=== PATIENT | male | born 1960 | race Caucasian/White ===

== ENCOUNTER 2022-01-01 17:04 | Emergency (ER) | payer OTHER ==
[~2022-01-01] VITALS: Ht 172.7 cm; Wt 66.7 kg
[2022-01-01] MEDS ORDERED: NACL 0.9% 1,000 ML IV ONE (17:10)
[2022-01-01 17:23] VITALS: BP 177/85
[2022-01-01 17:36] LABS: HEMOGLOBIN 11.9 g/dL (12.0-18.0); MEAN CORPUSCULAR HEMOGLOBIN 32 pg (27-31); RED BLOOD CELL COUNT(AUTO) 3.69 MIL/uL (4.20-6.10)
--- NOTE | 2022-01-01 17:58 | NUR ---
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
--- NOTE | 2022-01-01 18:00 | NUR ---
61/M BIBA FROM HOME. PER EMS PATIENTS FAMILY CALLED 911 STATING THEY FOUND PATIENT LYING ON GROUND S/P UNWITNESSED FALL. PATIENT STATING HE FELL YESTERDAY, LACERATION NOTED TO RIGHT EYEBROW, SWELLING AND TENDERNESS NOTED TO RIGHT ELBOW. PATIENT DENIES PAIN AT THIS TIME. UPON ARRIVAL TO ED, PATIENT SOILED, DR. SHUKLA EVALUATED PATIENT UPON ARRIVAL TO ED. PATIENT ALERT AND ORIENTED TO NAME AND PLACE UPON ARRIVAL.
--- NOTE | 2022-01-01 18:15 | NUR ---
UPON ARRIVAL PATIENT SOILED HIMSELF, WITH THE ASSISTANCE OF MAR HARDY, PATIENT WAS DISROBED, CLEANED, PLACED IN CLEAN GOWN AND DIAPER, NEW SHEETS AND UNDERPADS PROVIDED. 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
[2022-01-01 18:26] LABS: HEMATOCRIT 33.6 % (36-52); MEAN CORPUSCULAR HGB CONC 35 g/dL (33-37); MEAN CORPUSCULAR VOLUME 91.1 fL (80-94); PLATELET COUNT (AUTO) 176 K/uL (140-450); RED CELL DISTRIBUTION WIDTH 13.9 % (11.6-13.7)
[2022-01-01 18:40] LABS: WHITE BLOOD COUNT (AUTO) 21.2 K/uL (4.8-10.8)
[2022-01-01 18:44] LABS: ALBUMIN 3.5 g/dL (3.4-5.0); ANION GAP 16.7 (8-16); CARBON DIOXIDE 23.9 mmol/L (21-32); CREATININE 0.7 mg/dL (0.6-1.3); POTASSIUM 3.6 mmol/L (3.5-5.1); TOTAL BILIRUBIN 1.1 mg/dL (0.0-1.0)
--- NOTE | 2022-01-01 18:47 | NUR ---
PT TAKEN TO CT [facility]IA [facility]
[2022-01-01 19:01] LABS: APPEARANCE,URINE CLEAR (CLEAR); BILIRUBIN,URINE NEGATIVE (NEGATIVE); BLOOD, URINE 2+ (NEGATIVE); COLOR,URINE YELLOW (YELLOW); LEUKOCYTE ESTERASE ,URINE NEGATIVE (NEGATIVE); NITRITE, URINE NEGATIVE (NEGATIVE); UGLUCOSE 3+ (NEGATIVE)
[2022-01-01] MEDS ORDERED: PIPERACILLIN/TAZOBACTAM 3.375 GM in DEXTROSE 5% 50 ML IV ONE (19:25)
--- NOTE | 2022-01-01 19:35 | NUR ---
Pt report given to WILEY RAMESH. Transfer of care at this time.
[2022-01-01] MEDS ORDERED: OSMITROL 25% 12.5 GM/50 ML VIAL IV ONE (20:05)
[2022-01-01] MEDS ORDERED: PIPERACILLIN/TAZOBACTAM 3.375 GM VIAL IV ONE (20:12)
[2022-01-01] MEDS ORDERED: levETIRAcetam 100 MG/ML VIAL IV ONE (20:13)
[2022-01-01 20:50] LABS: RBC,URINE 0-5 /HPF (0-5)
[2022-01-01 20:51] LABS: CALCIUM OXALATE CRYSTALS,UR None Seen /HPF (None Seen); TRICHOMONAS,URINE None Seen /HPF (None Seen); YEAST,URINE None Seen /HPF (None Seen)
[2022-01-01 20:52] LABS: COARSE GRANULAR CASTS,URINE None Seen /LPF (None Seen); FINE GRANULAR CASTS,URINE None Seen /LPF (None Seen); OTHER CASTS, URINE None Seen /LPF (None Seen); RED BLOOD CELL CASTS,URINE None Seen /LPF (None Seen); TRIPLE PHOSPHATE CRYSTAL,UR None Seen /HPF (None Seen); URIC ACID CRYSTALS,URINE None Seen /HPF (None Seen); WAXY CASTS,URINE None Seen /LPF (None Seen)
--- NOTE | 2022-01-01 21:00 | NUR ---
[facility] TRANSPORT AT BEDSIDE
--- NOTE | 2022-01-01 21:05 | NUR ---
Patient to be transferred to [facility]. Is being transferred due to need of higher level of care. Receiving facility has accepting physician and available space. ER physician has signed transfer form. Patient or responsible green party has agreed to transfer and signed form. Patient belongings inventoried and will be sent with patient. Copy of nursing notes, lab reports, EKG, Physicians Orders and X-rays to be sent with patient. Report called to Gail JAMA at receiving facility. [facility] has been called for transfer. ETA to [facility] is approximately 30minutes.
[2022-01-01 21:10] VITALS: BP 137/53
--- NOTE | 2022-01-01 21:21 | NUR ---
PT TAKEN BY [facility] TRANSPORT TO [facility]
--- NOTE | 2022-01-02 11:39 | NUR ---
LATE ENTRY- NORMAL SALINE IV FLUIDS DISCONTINUED AT 2120.
== END 2022-01-01 18:00 | disposition short-term general hospital (02) ==
LOC: MED 17:04
DX: S06.5X9A Traumatic subdural hemorrhage with loss of consciousness of unspecified duration, initial encounter (principal); L03.113 Cellulitis of right upper limb; A41.9 Sepsis, unspecified organism; W19.XXXA Unspecified fall, initial encounter; Y93.89 Activity, other specified; Y92.89 Other specified places as the place of occurrence of the external cause; Y99.8 Other external cause status
CPT/HCPCS: 36415; 70450; 71045; 72125; 73080; 80053; 81001; 83605; 84484; 85025; 85610; 85730; 87040; 87086; 93005; 96361; 96365; 96368; 96375; 99291; J1953; J2150; J2543; J7060; Q0092; J7030

== ENCOUNTER 2023-09-17 18:06 | Inpatient (IN) | payer OTHER ==
[~2023-09-17] VITALS: Ht 172.7 cm; Wt 68.0 kg
[2023-09-17 18:08] VITALS: BP 88/50; PULSE 110; RESP 17; TEMP 97.7; O2SAT 98
[2023-09-17] MEDS ORDERED: NACL 0.9% 1,000 ML IV ONE (18:20)
[2023-09-17 18:54] LABS: HEMATOCRIT 29.8 % (36-52); HEMOGLOBIN 10.1 g/dL (12.0-18.0); MEAN CORPUSCULAR HEMOGLOBIN 29 pg (27-31); MEAN CORPUSCULAR HGB CONC 34 g/dL (33-37); MEAN CORPUSCULAR VOLUME 85.1 fL (80-94); PLATELET COUNT (AUTO) 270 K/uL (140-450); RED CELL DISTRIBUTION WIDTH 17.3 % (11.6-13.7)
[2023-09-17 19:01] LABS: WHITE BLOOD COUNT (AUTO) 37.5 K/uL (4.8-10.8)
[2023-09-17 19:04] LABS: INR 1.2 (0.8-1.2); PROTHROMBIN TIME 12.5 secs (10.8-13.4)
[2023-09-17 19:12] LABS: ALANINE AMINOTRANSFERASE 31 U/L (12-78); ALBUMIN 2.5 g/dL (3.4-5.0); ALKALINE PHOSPHATASE 120 U/L (50-136); ANION GAP 19.4 (8-16); ASPARTATE AMINOTRANSFERASE 24 U/L (15-37); CALCIUM 7.8 mg/dL (8.5-10.1); CARBON DIOXIDE 15.7 mmol/L (21-32); CHLORIDE 95 mmol/L (98-107); CREATINE KINASE, TOTAL 124 U/L (39-308); CREATININE 3.1 mg/dL (0.6-1.3); GFR ARICAN-AMERICAN 26 mL/min (>90); GFR NON ARICAN-AMERICAN 22 mL/min (>90); GLUCOSE 309 mg/dL (74-106); POTASSIUM 4.1 mmol/L (3.5-5.1); SODIUM SERUM 126 mmol/L (136-145); TOTAL BILIRUBIN 0.9 mg/dL (0.0-1.0); TOTAL PROTEIN, SERUM 7.6 g/dL (6.4-8.2)
[2023-09-17 19:16] LABS: UREA NITROGEN, BLOOD 99 mg/dL (7-18)
[2023-09-17 19:39] LABS: LYMPHOCYTES % (MANUAL) 2 % (20-46); MONOCYTES % (MANUAL) 3 % (5-12); PLATELET ESTIMATE ADEQUATE
[2023-09-17] MEDS ORDERED: VANCOMYCIN 1,000 MG in DEXTROSE 5% 250 ML IV ONE (19:45)
[2023-09-17] MEDS ORDERED: PIPERACILLIN/TAZOBACTAM 3.375 GM in DEXTROSE 5% 50 ML IV ONE (19:45)
[2023-09-17] MEDS ORDERED: PIPERACILLIN/TAZOBACTAM 3.375 GM VIAL IV ONE (19:49)
[2023-09-17] MEDS ORDERED: VANCOMYCIN 1,000 MG VIAL ONE (20:36)
[2023-09-17 20:42] LABS: LACTIC ACID 2.2 mmol/L (0.4-2.0)
[2023-09-17 21:25] LABS: APPEARANCE,URINE CLOUDY (CLEAR); COLOR,URINE STRAW (YELLOW)
[2023-09-17 21:26] LABS: BILIRUBIN,URINE NEGATIVE (NEGATIVE); BLOOD, URINE 3+ (NEGATIVE); LEUKOCYTE ESTERASE ,URINE 2+ (NEGATIVE); NITRITE, URINE NEGATIVE (NEGATIVE); PH,URINE 6.5 (5.0-9.0); PROTEIN,URINE 2+ (NEGATIVE); UGLUCOSE 1+ (NEGATIVE); UROBILINOGEN,URINE 0.2 EU/dL (0.2 - 1)
[2023-09-17 21:38] LABS: BACTERIA,URINE 4+ /HPF (None Seen); SQUAMOUS EPITHELIAL CELL,UR None Seen /LPF (0-3 (FEW)); WBC,URINE TOO MANY TO COUNT /HPF (0-5)
[2023-09-17] MEDS ORDERED: ONDANSETRON 4 MG/2 ML VIAL IVP PRN (23:40)
[2023-09-17] MEDS ORDERED: HYDROcodone/APAP 5/325 MG 1 TAB TAB PO PRN (23:40)
[2023-09-17] MEDS ORDERED: MAG SULF 2000 MG/WATER PREMIX 50 ML IV PRN (23:40)
[2023-09-17] MEDS ORDERED: ACETAMINOPHEN 325 MG TAB PO PRN (23:40)
[2023-09-17] MEDS ORDERED: KCL 20 MEQ IN 100 mL PREMIX 200 ML IV PRN (23:40)
[2023-09-17] MEDS ORDERED: MAGNESIUM OXIDE 400 MG TAB PO PRN (23:40)
[2023-09-17] MEDS ORDERED: POTASSIUM CHLORIDE 10 MEQ TABER PO PRN (23:40)
[2023-09-18] VITALS (7 sets, daily range): BP systolic 93–118; BP diastolic 54–62; PULSE 89–108; RESP 16–22; TEMP 97.4–98.6; O2SAT 94–100
[2023-09-18] MEDS ORDERED: PIPERACILLIN/TAZOBACTAM 3.375 GM in DEXTROSE 5% 50 ML IV SCH ×2
[2023-09-18] MEDS ORDERED: ACETAMINOPHEN 325 MG TAB PO STA (00:03)
[2023-09-18] MEDS: NACL 0.9% 1,000 ML IV SCH ×3 (00:22→23:54)
[2023-09-18] MEDS ORDERED: PIPER/TAZO 3.375GM/D5W PREMIX 50 ML IV SCH (04:00)
[2023-09-18] MEDS ORDERED: PIPERACILLIN/TAZOBACTAM 3.375 GM VIAL IV ONE (04:56)
[2023-09-18 05:23] LABS: BASOPHILS # (AUTO) 0.1 K/uL (0.00-0.22); BASOPHILS % (AUTO) 0.2 % (0.0-2.0); EOSINOPHILS # (AUTO) 0.1 K/uL (0-0.4); EOSINOPHILS % (AUTO) 0.2 % (0.0-4.0); HEMATOCRIT 28.8 % (36-52); HEMOGLOBIN 9.8 g/dL (12.0-18.0); LYMPHOCYTES # (AUTO) 1.1 K/uL (2.0-11.5); LYMPHOCYTES % (AUTO) 3.2 % (20.5-51.1); MEAN CORPUSCULAR HEMOGLOBIN 29 pg (27-31); MEAN CORPUSCULAR HGB CONC 34 g/dL (33-37); MONOCYTES # (AUTO) 2.5 K/uL (0.8-1.0); MONOCYTES % (AUTO) 7.3 % (1.7-9.3); NEUTROPHILS # (AUTO) 29.9 K/uL (1.8-7.7); NEUTROPHILS % (AUTO) 89.1 % (42.2-75.2); PLATELET COUNT (AUTO) 255 K/uL (140-450); RED BLOOD CELL COUNT(AUTO) 3.39 MIL/uL (4.20-6.10); RED CELL DISTRIBUTION WIDTH 17.1 % (11.6-13.7)
[2023-09-18 05:34] LABS: WHITE BLOOD COUNT (AUTO) 33.6 K/uL (4.8-10.8)
[2023-09-18 05:56] LABS: ANION GAP 21.5 (8-16); CALCIUM 7.5 mg/dL (8.5-10.1); CARBON DIOXIDE 13.1 mmol/L (21-32); CREATININE 3.1 mg/dL (0.6-1.3); POTASSIUM 3.6 mmol/L (3.5-5.1)
[2023-09-18 05:59] LABS: PHOSPHORUS 4.6 mg/dL (2.5-4.9)
[2023-09-18] MEDS ORDERED: FOAM DRESSING TP PRN (11:20)
[2023-09-18] MEDS ORDERED: DEXTROSE 50% 50 ML SYR IVP PRN (12:45)
[2023-09-18] MEDS: FOAM DRESSING TP SCH (13:00)
[2023-09-18] MEDS: Z-GUARD PASTE TP SCH (13:00)
[2023-09-18] MEDS: PIPERACILLIN/TAZOBACTAM 2.25 GM in DEXTROSE 5% 50 ML IV SCH ×3 (13:03→23:53)
[2023-09-18] MEDS: BLOOD GLUCOSE MONITORING 1 DEV DEV FS SCH ×2 (16:30→21:21)
[2023-09-18] MEDS: INSULIN LISPRO SLIDING SCALE 100 UNITS/ML VIAL SUBQ PRN ×2 (18:43→21:23)
[2023-09-19] VITALS (7 sets, daily range): BP systolic 86–123; BP diastolic 55–73; PULSE 78–127; RESP 15–18; TEMP 96.9–97.7; O2SAT 92–99
[2023-09-19 05:22] LABS: BASOPHILS # (AUTO) 0.1 K/uL (0.00-0.22); BASOPHILS % (AUTO) 0.3 % (0.0-2.0); EOSINOPHILS # (AUTO) 0.2 K/uL (0-0.4); EOSINOPHILS % (AUTO) 0.6 % (0.0-4.0); HEMATOCRIT 29.4 % (36-52); LYMPHOCYTES # (AUTO) 0.8 K/uL (2.0-11.5); LYMPHOCYTES % (AUTO) 2.5 % (20.5-51.1); MEAN CORPUSCULAR HEMOGLOBIN 29 pg (27-31); MEAN CORPUSCULAR HGB CONC 34 g/dL (33-37); MEAN CORPUSCULAR VOLUME 84.6 fL (80-94); MONOCYTES # (AUTO) 2.4 K/uL (0.8-1.0); MONOCYTES % (AUTO) 7.3 % (1.7-9.3); NEUTROPHILS # (AUTO) 28.9 K/uL (1.8-7.7); NEUTROPHILS % (AUTO) 89.3 % (42.2-75.2); PLATELET COUNT (AUTO) 249 K/uL (140-450); RED BLOOD CELL COUNT(AUTO) 3.47 MIL/uL (4.20-6.10); RED CELL DISTRIBUTION WIDTH 17.6 % (11.6-13.7)
[2023-09-19 05:28] LABS: WHITE BLOOD COUNT (AUTO) 32.4 K/uL (4.8-10.8)
[2023-09-19] MEDS: PIPERACILLIN/TAZOBACTAM 2.25 GM in DEXTROSE 5% 50 ML IV SCH ×3 (05:36→20:50)
[2023-09-19 05:40] LABS: MAGNESIUM 2.1 mg/dL (1.8-2.4); PHOSPHORUS 3.3 mg/dL (2.5-4.9)
[2023-09-19 06:13] LABS: ANION GAP 23.1 (8-16); CALCIUM 7.7 mg/dL (8.5-10.1); CARBON DIOXIDE 13.7 mmol/L (21-32); CREATININE 3.6 mg/dL (0.6-1.3); POTASSIUM 3.8 mmol/L (3.5-5.1)
[2023-09-19] MEDS: BLOOD GLUCOSE MONITORING 1 DEV DEV FS SCH ×4 (06:43→20:54)
[2023-09-19] MEDS: INSULIN LISPRO SLIDING SCALE 100 UNITS/ML VIAL SUBQ PRN ×4 (06:45→20:56)
[2023-09-19] MEDS: VIT-B COMP/VIT-C/FOLIC ACID 1 TAB PO SCH (09:18)
[2023-09-19] MEDS: NACL 0.9% 1,000 ML IV SCH (13:47)
[2023-09-19] MEDS: Z-GUARD PASTE TP SCH (13:48)
[2023-09-19] MEDS ORDERED: ALBUMIN HUMAN 25% 100 ML IV SCH (18:00)
[2023-09-19] MEDS: MIDODRINE 5 MG TAB PO SCH (18:27)
[2023-09-20] VITALS: BP 123/73; PULSE 127; PULSE 89; RESP 15; TEMP 97.7; O2SAT 98
[2023-09-20] MEDS: NACL 0.9% 1,000 ML IV SCH ×2 (01:40→14:31)
[2023-09-20 04:00] VITALS: BP 98/56; PULSE 88; PULSE 90; RESP 15; TEMP 97.2; O2SAT 99
[2023-09-20] MEDS: PIPERACILLIN/TAZOBACTAM 2.25 GM in DEXTROSE 5% 50 ML IV SCH ×3 (04:50→20:20)
[2023-09-20 05:17] LABS: BASOPHILS # (AUTO) 0.1 K/uL (0.00-0.22); BASOPHILS % (AUTO) 0.3 % (0.0-2.0); EOSINOPHILS # (AUTO) 0.7 K/uL (0-0.4); EOSINOPHILS % (AUTO) 1.8 % (0.0-4.0); HEMATOCRIT 32.5 % (36-52); HEMOGLOBIN 10.9 g/dL (12.0-18.0); LYMPHOCYTES # (AUTO) 1.7 K/uL (2.0-11.5); LYMPHOCYTES % (AUTO) 4.6 % (20.5-51.1); MEAN CORPUSCULAR HEMOGLOBIN 28 pg (27-31); MEAN CORPUSCULAR HGB CONC 34 g/dL (33-37); MEAN CORPUSCULAR VOLUME 84.6 fL (80-94); MONOCYTES # (AUTO) 2.7 K/uL (0.8-1.0); MONOCYTES % (AUTO) 7.3 % (1.7-9.3); NEUTROPHILS # (AUTO) 31.8 K/uL (1.8-7.7); PLATELET COUNT (AUTO) 222 K/uL (140-450); RED BLOOD CELL COUNT(AUTO) 3.84 MIL/uL (4.20-6.10); RED CELL DISTRIBUTION WIDTH 17.8 % (11.6-13.7)
[2023-09-20 05:57] LABS: ANION GAP 22.1 (8-16); CALCIUM 7.6 mg/dL (8.5-10.1); CARBON DIOXIDE 12.7 mmol/L (21-32); POTASSIUM 3.8 mmol/L (3.5-5.1)
[2023-09-20 06:05] LABS: MAGNESIUM 2.2 mg/dL (1.8-2.4); PHOSPHORUS 3.5 mg/dL (2.5-4.9)
[2023-09-20 06:10] LABS: CREATININE 4.1 mg/dL (0.6-1.3)
[2023-09-20] MEDS: INSULIN LISPRO SLIDING SCALE 100 UNITS/ML VIAL SUBQ PRN ×4 (06:30→20:24)
[2023-09-20] MEDS: MIDODRINE 5 MG TAB PO SCH ×3 (06:30→20:20)
[2023-09-20] MEDS: BLOOD GLUCOSE MONITORING 1 DEV DEV FS SCH ×4 (06:31→20:30)
[2023-09-20 08:00] VITALS: BP 92/58; PULSE 84; PULSE 87; RESP 18; TEMP 97.8; O2SAT 99
[2023-09-20] MEDS: VIT-B COMP/VIT-C/FOLIC ACID 1 TAB PO SCH (09:59)
[2023-09-20 12:00] VITALS: BP 97/55; PULSE 76; PULSE 77; RESP 18; TEMP 97.6; O2SAT 99
[2023-09-20] MEDS: Z-GUARD PASTE TP SCH (13:54)
[2023-09-20 16:00] VITALS: BP 114/79; PULSE 73; PULSE 74; RESP 18; TEMP 97.8; O2SAT 100
[2023-09-20] MEDS ORDERED: SODIUM CHLORIDE 1 GM TAB PO SCH (18:02)
[2023-09-20 20:00] VITALS: BP 117/64; PULSE 81; RESP 17; TEMP 96.7; O2SAT 98
[2023-09-21] VITALS (7 sets, daily range): BP systolic 109–125; BP diastolic 56–79; PULSE 70–94; RESP 18–20; TEMP 96.8–98.1; O2SAT 98–100
[2023-09-21] MEDS: NACL 0.9% 1,000 ML IV SCH ×2 (02:40→15:10)
[2023-09-21] MEDS: PIPERACILLIN/TAZOBACTAM 2.25 GM in DEXTROSE 5% 50 ML IV SCH ×3 (05:06→22:19)
[2023-09-21 06:18] LABS: ANION GAP 24.3 (8-16); CALCIUM 7.7 mg/dL (8.5-10.1); CARBON DIOXIDE 10.5 mmol/L (21-32); POTASSIUM 3.8 mmol/L (3.5-5.1)
[2023-09-21 06:20] LABS: CREATININE 4.6 mg/dL (0.6-1.3)
[2023-09-21] MEDS: BLOOD GLUCOSE MONITORING 1 DEV DEV FS SCH ×4 (06:35→22:25)
[2023-09-21] MEDS: INSULIN LISPRO SLIDING SCALE 100 UNITS/ML VIAL SUBQ PRN ×4 (06:36→22:29)
[2023-09-21 06:37] LABS: MAGNESIUM 2.3 mg/dL (1.8-2.4); PHOSPHORUS 4.5 mg/dL (2.5-4.9)
[2023-09-21] MEDS: MIDODRINE 5 MG TAB PO SCH ×3 (06:41→19:00)
[2023-09-21 06:58] LABS: HEMATOCRIT 33.5 % (36-52); HEMOGLOBIN 11.1 g/dL (12.0-18.0); MEAN CORPUSCULAR HEMOGLOBIN 29 pg (27-31); MEAN CORPUSCULAR HGB CONC 33 g/dL (33-37); MEAN CORPUSCULAR VOLUME 85.8 fL (80-94); PLATELET COUNT (AUTO) 188 K/uL (140-450); RED BLOOD CELL COUNT(AUTO) 3.91 MIL/uL (4.20-6.10)
[2023-09-21 07:20] LABS: WHITE BLOOD COUNT (AUTO) 37.7 K/uL (4.8-10.8)
[2023-09-21 07:38] LABS: ANISOCYTOSIS 1+; BASOPHILS % (MANUAL) 0 % (0-2); BLASTS, MANUAL % 0 % (0-0); EOSINOPHILS % (MANUAL) 2 % (0-4); LYMPHOCYTES % (MANUAL) 4 % (20-46); METAMYELOCYTES % 0 % (0-0); MONOCYTES % (MANUAL) 8 % (5-12); MYELOCYTES % 0 % (0-0); OTHER CELLS,MANUAL % 0 (0-0); PLATELET ESTIMATE ADEQUATE; PROMYELOCYTES % 0 % (0-0)
[2023-09-21] MEDS: VIT-B COMP/VIT-C/FOLIC ACID 1 TAB PO SCH (08:41)
[2023-09-21] MEDS: FOAM DRESSING TP SCH (09:00)
[2023-09-21] MEDS: Z-GUARD PASTE TP SCH (13:00)
[2023-09-21] MEDS ORDERED: LIDOCAINE 1% 500 MG/ 50 ML VIAL INJ SCH (13:45)
[2023-09-22] VITALS: BP 122/75; PULSE 86; PULSE 99; RESP 19; TEMP 97.7; O2SAT 98
[2023-09-22] MEDS: NACL 0.9% 1,000 ML IV SCH ×2 (01:41→14:28)
[2023-09-22 04:00] VITALS: BP 107/59; PULSE 81; PULSE 83; RESP 19; TEMP 97.5; O2SAT 94
[2023-09-22] MEDS: PIPERACILLIN/TAZOBACTAM 2.25 GM in DEXTROSE 5% 50 ML IV SCH ×3 (05:56→21:24)
[2023-09-22] MEDS: MIDODRINE 5 MG TAB PO SCH ×3 (06:39→19:00)
[2023-09-22 06:43] LABS: BASOPHILS # (AUTO) 0.1 K/uL (0.00-0.22); BASOPHILS % (AUTO) 0.2 % (0.0-2.0); EOSINOPHILS # (AUTO) 0.4 K/uL (0-0.4); EOSINOPHILS % (AUTO) 1.4 % (0.0-4.0); HEMATOCRIT 29.4 % (36-52); HEMOGLOBIN 9.8 g/dL (12.0-18.0); LYMPHOCYTES # (AUTO) 1.6 K/uL (2.0-11.5); MEAN CORPUSCULAR HEMOGLOBIN 28 pg (27-31); MEAN CORPUSCULAR HGB CONC 33 g/dL (33-37); MEAN CORPUSCULAR VOLUME 84.7 fL (80-94); MONOCYTES # (AUTO) 2.3 K/uL (0.8-1.0); MONOCYTES % (AUTO) 8.2 % (1.7-9.3); NEUTROPHILS # (AUTO) 23.6 K/uL (1.8-7.7); PLATELET COUNT (AUTO) 142 K/uL (140-450); RED BLOOD CELL COUNT(AUTO) 3.47 MIL/uL (4.20-6.10); RED CELL DISTRIBUTION WIDTH 17.8 % (11.6-13.7)
[2023-09-22] MEDS: BLOOD GLUCOSE MONITORING 1 DEV DEV FS SCH ×4 (06:44→21:25)
[2023-09-22] MEDS: INSULIN LISPRO SLIDING SCALE 100 UNITS/ML VIAL SUBQ PRN ×4 (06:50→21:41)
[2023-09-22 07:16] LABS: ANION GAP 21.3 (8-16); CALCIUM 7.2 mg/dL (8.5-10.1); CREATININE 3.5 mg/dL (0.6-1.3); POTASSIUM 3.3 mmol/L (3.5-5.1)
[2023-09-22 07:24] LABS: LYMPHOCYTES % (AUTO) 5.7 % (20.5-51.1); NEUTROPHILS % (AUTO) 84.5 % (42.2-75.2)
[2023-09-22 08:00] VITALS: BP 105/58; PULSE 77; PULSE 79; PULSE 80; RESP 18; TEMP 97.2; O2SAT 98
[2023-09-22 08:05] LABS: PHOSPHORUS 3.9 mg/dL (2.5-4.9)
[2023-09-22] MEDS: VIT-B COMP/VIT-C/FOLIC ACID 1 TAB PO SCH (08:12)
[2023-09-22 12:00] VITALS: BP 104/58; PULSE 76; PULSE 83; RESP 18; TEMP 96.9; O2SAT 96
[2023-09-22] MEDS: Z-GUARD PASTE TP SCH (13:12)
[2023-09-22 16:00] VITALS: BP 107/63; PULSE 75; RESP 18; TEMP 96.9; O2SAT 98
[2023-09-22 20:00] VITALS: BP 118/69; PULSE 82; PULSE 85; RESP 20; TEMP 97.4; O2SAT 97
[2023-09-23] VITALS (9 sets, daily range): BP systolic 112–124; BP diastolic 63–82; PULSE 72–90; RESP 18–20; TEMP 96.8–97.4; O2SAT 96–99
[2023-09-23] MEDS: NACL 0.9% 1,000 ML IV SCH ×2 (04:40→17:12)
[2023-09-23 05:18] LABS: BASOPHILS # (AUTO) 0.1 K/uL (0.00-0.22); BASOPHILS % (AUTO) 0.3 % (0.0-2.0); EOSINOPHILS # (AUTO) 0.6 K/uL (0-0.4); EOSINOPHILS % (AUTO) 2.6 % (0.0-4.0); HEMATOCRIT 29.7 % (36-52); LYMPHOCYTES # (AUTO) 1.8 K/uL (2.0-11.5); LYMPHOCYTES % (AUTO) 7.7 % (20.5-51.1); MEAN CORPUSCULAR HEMOGLOBIN 28 pg (27-31); MEAN CORPUSCULAR HGB CONC 34 g/dL (33-37); MEAN CORPUSCULAR VOLUME 84.5 fL (80-94); MONOCYTES # (AUTO) 2.1 K/uL (0.8-1.0); MONOCYTES % (AUTO) 8.6 % (1.7-9.3); NEUTROPHILS # (AUTO) 19.4 K/uL (1.8-7.7); NEUTROPHILS % (AUTO) 80.8 % (42.2-75.2); PLATELET COUNT (AUTO) 139 K/uL (140-450); RED BLOOD CELL COUNT(AUTO) 3.51 MIL/uL (4.20-6.10); RED CELL DISTRIBUTION WIDTH 17.7 % (11.6-13.7); WHITE BLOOD COUNT (AUTO) 24.1 K/uL (4.8-10.8)
[2023-09-23] MEDS: PIPERACILLIN/TAZOBACTAM 2.25 GM in DEXTROSE 5% 50 ML IV SCH ×3 (05:27→22:03)
[2023-09-23 06:10] LABS: ANION GAP 16.7 (8-16); CALCIUM 7.2 mg/dL (8.5-10.1); CREATININE 3.4 mg/dL (0.6-1.3); POTASSIUM 3.7 mmol/L (3.5-5.1)
[2023-09-23] MEDS: BLOOD GLUCOSE MONITORING 1 DEV DEV FS SCH ×4 (06:39→22:12)
[2023-09-23] MEDS: INSULIN LISPRO SLIDING SCALE 100 UNITS/ML VIAL SUBQ PRN ×4 (06:49→22:16)
[2023-09-23] MEDS: MIDODRINE 5 MG TAB PO SCH ×3 (07:00→19:00)
[2023-09-23] MEDS: VIT-B COMP/VIT-C/FOLIC ACID 1 TAB PO SCH (08:43)
[2023-09-23] MEDS: Z-GUARD PASTE TP SCH (13:28)
[2023-09-23 20:14] LABS: INR 1.16 (0.8-1.2); PARTIAL THROMBOPLASTIN TIME 30.8 secs (22-35.6); PROTHROMBIN TIME 12.1 secs (10.8-13.4)
[2023-09-24] VITALS: BP 117/82; PULSE 81; RESP 18; TEMP 97.1; O2SAT 96
[2023-09-24] MEDS: NACL 0.9% 1,000 ML IV SCH ×2 (03:24→17:03)
[2023-09-24 04:00] VITALS: BP 130/59; PULSE 83; RESP 18; TEMP 97.5; O2SAT 99
[2023-09-24 05:24] LABS: BASOPHILS # (AUTO) 0.1 K/uL (0.00-0.22); BASOPHILS % (AUTO) 0.5 % (0.0-2.0); EOSINOPHILS # (AUTO) 0.5 K/uL (0-0.4); EOSINOPHILS % (AUTO) 2.6 % (0.0-4.0); HEMATOCRIT 28.3 % (36-52); HEMOGLOBIN 9.4 g/dL (12.0-18.0); LYMPHOCYTES # (AUTO) 1.6 K/uL (2.0-11.5); MEAN CORPUSCULAR HEMOGLOBIN 28 pg (27-31); MEAN CORPUSCULAR HGB CONC 33 g/dL (33-37); MEAN CORPUSCULAR VOLUME 85.4 fL (80-94); MONOCYTES # (AUTO) 1.4 K/uL (0.8-1.0); NEUTROPHILS # (AUTO) 16.6 K/uL (1.8-7.7); NEUTROPHILS % (AUTO) 81.9 % (42.2-75.2); PLATELET COUNT (AUTO) 119 K/uL (140-450); RED BLOOD CELL COUNT(AUTO) 3.32 MIL/uL (4.20-6.10); WHITE BLOOD COUNT (AUTO) 20.3 K/uL (4.8-10.8)
[2023-09-24] MEDS: PIPERACILLIN/TAZOBACTAM 2.25 GM in DEXTROSE 5% 50 ML IV SCH (05:55)
[2023-09-24] MEDS: BLOOD GLUCOSE MONITORING 1 DEV DEV FS SCH ×4 (06:31→21:52)
[2023-09-24] MEDS: INSULIN LISPRO SLIDING SCALE 100 UNITS/ML VIAL SUBQ PRN ×4 (06:34→21:51)
[2023-09-24] MEDS: MIDODRINE 5 MG TAB PO SCH (07:00)
[2023-09-24 07:34] LABS: ANION GAP 16.6 (8-16); CALCIUM 7.1 mg/dL (8.5-10.1); CARBON DIOXIDE 18.4 mmol/L (21-32); CREATININE 2.8 mg/dL (0.6-1.3)
[2023-09-24 08:00] VITALS: BP 116/68; PULSE 88; RESP 18; TEMP 97.2; TEMP 97.6; O2SAT 98
[2023-09-24] MEDS: VIT-B COMP/VIT-C/FOLIC ACID 1 TAB PO SCH (08:54)
[2023-09-24] MEDS: FOAM DRESSING TP SCH (08:54)
[2023-09-24] MEDS: Z-GUARD PASTE TP SCH (13:41)
[2023-09-24 16:00] VITALS: BP 130/69; PULSE 80; RESP 20; TEMP 96.8; O2SAT 100
[2023-09-24 20:00] VITALS: PULSE 88; RESP 18; TEMP 98; O2SAT 98
[2023-09-25 04:00] VITALS: BP 120/68; PULSE 85; RESP 17; TEMP 98; O2SAT 96
[2023-09-25] MEDS ORDERED: PIPERACILLIN/TAZOBACTAM 2.25 GM VIAL IV ONE (05:15)
[2023-09-25] MEDS: PIPERACILLIN/TAZOBACTAM 2.25 GM in DEXTROSE 5% 50 ML IV SCH ×3 (05:30→20:12)
[2023-09-25 05:32] LABS: BASOPHILS # (AUTO) 0.1 K/uL (0.00-0.22); BASOPHILS % (AUTO) 0.4 % (0.0-2.0); EOSINOPHILS # (AUTO) 0.5 K/uL (0-0.4); EOSINOPHILS % (AUTO) 2.5 % (0.0-4.0); HEMATOCRIT 28.2 % (36-52); HEMOGLOBIN 9.3 g/dL (12.0-18.0); LYMPHOCYTES # (AUTO) 1.7 K/uL (2.0-11.5); LYMPHOCYTES % (AUTO) 9.3 % (20.5-51.1); MEAN CORPUSCULAR HEMOGLOBIN 28 pg (27-31); MEAN CORPUSCULAR HGB CONC 33 g/dL (33-37); MEAN CORPUSCULAR VOLUME 85.6 fL (80-94); MONOCYTES # (AUTO) 1.3 K/uL (0.8-1.0); MONOCYTES % (AUTO) 7.2 % (1.7-9.3); NEUTROPHILS % (AUTO) 80.6 % (42.2-75.2); PLATELET COUNT (AUTO) 133 K/uL (140-450); RED CELL DISTRIBUTION WIDTH 17.6 % (11.6-13.7); WHITE BLOOD COUNT (AUTO) 18.6 K/uL (4.8-10.8)
[2023-09-25] MEDS: NACL 0.9% 1,000 ML IV SCH ×3 (06:01→20:20)
[2023-09-25 06:09] LABS: HEPATITIS A ANTIBODY IGM Negative (Negative); HEPATITIS A ANTIBODY TOTAL Negative (Negative); HEPATITIS B CORE, IGM Negative (Negative); HEPATITIS B SURFACE ANTIBODY Non Reactive (.); HEPATITIS B SURFACE ANTIGEN Negative (Negative)
[2023-09-25 06:36] LABS: CALCIUM 7.3 mg/dL (8.5-10.1); CARBON DIOXIDE 20.2 mmol/L (21-32); CREATININE 2.4 mg/dL (0.6-1.3); POTASSIUM 4.2 mmol/L (3.5-5.1)
[2023-09-25] MEDS: INSULIN LISPRO SLIDING SCALE 100 UNITS/ML VIAL SUBQ PRN ×4 (06:41→20:14)
[2023-09-25] MEDS: BLOOD GLUCOSE MONITORING 1 DEV DEV FS SCH ×4 (06:43→20:12)
[2023-09-25 08:00] VITALS: BP 126/74; PULSE 88; RESP 18; TEMP 96.9; TEMP 97.2; O2SAT 96
[2023-09-25] MEDS: VIT-B COMP/VIT-C/FOLIC ACID 1 TAB PO SCH (08:20)
[2023-09-25] MEDS: Z-GUARD PASTE TP SCH (13:35)
[2023-09-25] MEDS ORDERED: INSULIN LISPRO 100 UNITS/ML VIAL SUBQ SCH (13:54)
[2023-09-25 20:00] VITALS: BP 120/70; PULSE 81; RESP 18; TEMP 97.3; O2SAT 100
[2023-09-26 04:00] VITALS: BP 133/77; PULSE 88; RESP 18; TEMP 97.7; O2SAT 100
[2023-09-26] MEDS: PIPERACILLIN/TAZOBACTAM 2.25 GM in DEXTROSE 5% 50 ML IV SCH ×2 (04:55→13:42)
[2023-09-26 05:49] LABS: BASOPHILS # (AUTO) 0.1 K/uL (0.00-0.22); BASOPHILS % (AUTO) 0.6 % (0.0-2.0); EOSINOPHILS # (AUTO) 0.5 K/uL (0-0.4); EOSINOPHILS % (AUTO) 2.7 % (0.0-4.0); HEMATOCRIT 27.3 % (36-52); HEMOGLOBIN 9.1 g/dL (12.0-18.0); LYMPHOCYTES # (AUTO) 1.8 K/uL (2.0-11.5); LYMPHOCYTES % (AUTO) 9.4 % (20.5-51.1); MEAN CORPUSCULAR HEMOGLOBIN 29 pg (27-31); MEAN CORPUSCULAR HGB CONC 33 g/dL (33-37); MEAN CORPUSCULAR VOLUME 86.3 fL (80-94); MONOCYTES # (AUTO) 1.2 K/uL (0.8-1.0); MONOCYTES % (AUTO) 6.2 % (1.7-9.3); NEUTROPHILS # (AUTO) 15.9 K/uL (1.8-7.7); NEUTROPHILS % (AUTO) 81.1 % (42.2-75.2); PLATELET COUNT (AUTO) 127 K/uL (140-450); RED BLOOD CELL COUNT(AUTO) 3.17 MIL/uL (4.20-6.10); RED CELL DISTRIBUTION WIDTH 17.6 % (11.6-13.7); WHITE BLOOD COUNT (AUTO) 19.6 K/uL (4.8-10.8)
[2023-09-26 05:57] LABS: CALCIUM 7.1 mg/dL (8.5-10.1); CARBON DIOXIDE 21.4 mmol/L (21-32); POTASSIUM 4.4 mmol/L (3.5-5.1)
[2023-09-26] MEDS: BLOOD GLUCOSE MONITORING 1 DEV DEV FS SCH ×2 (06:39→12:23)
[2023-09-26] MEDS: INSULIN LISPRO SLIDING SCALE 100 UNITS/ML VIAL SUBQ PRN ×2 (06:43→12:30)
[2023-09-26 08:00] VITALS: PULSE 94; TEMP 98
[2023-09-26] MEDS: VIT-B COMP/VIT-C/FOLIC ACID 1 TAB PO SCH (08:54)
[2023-09-26 09:11] VITALS: PULSE 100; RESP 19; O2SAT 97
[2023-09-26 12:00] VITALS: BP 127/69; PULSE 94; RESP 21; TEMP 98; O2SAT 100
[2023-09-26] MEDS: Z-GUARD PASTE TP SCH (13:42)
[2023-09-26] MEDS ORDERED: CIPR500T4 PO (13:57)
[2023-09-26 15:29] LABS: HEPATITIS B CORE AB TOTAL POSITIVE (NEGATIVE)
[2023-09-26 15:30] LABS: HEPATITIS C VIRUS ANTIBODY POSITIVE s/co rat (0.00 - 0.9)
[2023-09-26 15:35] VITALS: BP 127/64; PULSE 94; RESP 21; TEMP 98
== END 2023-09-26 16:30 | disposition home health service (06) | DRG 426 ==
LOC: MED 18:06 → MTU 23:40
PROVIDERS: ADMIT Hospitalist; ATTEND Hospitalist
PROC: 06H033Z Insertion of Infusion Device into Inferior Vena Cava, Percutaneous Approach (ICD-10-PCS; principal; 2023-09-21)
PROC: 5A1D70Z Performance of Urinary Filtration, Intermittent, Less than 6 Hours Per Day (ICD-10-PCS; 2023-09-21)
DX: E87.1 Hypo-osmolality and hyponatremia (principal); N17.0 Acute kidney failure with tubular necrosis; R57.9 Shock, unspecified; E44.0 Moderate protein-calorie malnutrition; R65.10 Systemic inflammatory response syndrome (SIRS) of non-infectious origin without acute organ dysfunction; N20.1 Calculus of ureter; N39.0 Urinary tract infection, site not specified; E11.9 Type 2 diabetes mellitus without complications; I10 Essential (primary) hypertension; F17.200 Nicotine dependence, unspecified, uncomplicated; E86.0 Dehydration; F10.10 Alcohol abuse, uncomplicated; Y90.9 Presence of alcohol in blood, level not specified
CPT/HCPCS: 36415; 70450; 71045; 72131; 72192; 76770; 80048; 80053; 81001; 82550; 82948; 83605; 83735; 84100; 84484; 85025; 85610; 85730; 86704; 86706; 86708; 86709; 86803; 86886; 86900; 86901; 87040; 87081; 87086; 87340; 93005; 96365; 96366; 96367; 97110; 97112; 97116; 97530; 99291; J1644; J1815; J2001; J2543; J3370; J7060; P9046; Q0092